=== PATIENT | male | born 1955 | race Caucasian/White ===

== ENCOUNTER 2018-06-26 12:16 | Outpatient (CLI) | payer OTHER, SELFPAY ==
[2018-06-26 14:33] LABS: Anion Gap 13.4 mmol/L (3-11); BUN 26 mg/dL (7-18); CO2 22.6 mmol/L (21.0-32.0); CREATININE 1.33 mg/dL (0.70-1.30); Calcium 9.2 mg/dL (8.5-10.1); Chloride 100 mmol/L (98-107); Estimated GFR 54.85 (mL/min/1.73m2); Glucose 264 mg/dL (70-100); Potassium 4.9 mmol/L (3.5-5.1); Sodium 136 mmol/L (136-145)
[2018-06-26 14:48] LABS: Hemoglobin A1C 8.9 % (4.5-6.2)
== END 2018-06-26 12:36 ==
PROVIDERS: PCP Emergency Medicine; Visit Provider Emergency Medicine
DX: E11.9 Type 2 diabetes mellitus without complications (principal); I10 Essential (primary) hypertension
CPT/HCPCS: 36415; 80048; 83036

== ENCOUNTER 2018-07-08 00:39 | Outpatient (CLI) | payer OTHER, SELFPAY ==
--- NOTE | 2018-07-08 09:13 | DI.CT_ITS ---
SYMPTOM/DIAGNOSIS: RIGHT RENAL CELL CANCER ABDOMINAL AND PELVIC CT: 07/08 CT examination of the abdomen and pelvis was performed with a bolus infusion of 100 cc Omnipaque 350 and ingestion of dilute barium. Images obtained through the lower lung talley are unremarkable. There is marked hepatic steatosis. No focal hepatic or splenic lesion identified. Pancreas is unremarkable in appearance. No biliary dilatation seen. Gallbladder appears to have been surgically removed. Note is made of right nephrectomy. There is also a left hemicolectomy. There is a tiny nonobstructing left renal calculus. Otherwise left kidney appears normal. Left adrenal is unremarkable in appearance. Abdominal aorta is of normal diameter and no major vascular abnormality is seen. Previous ventral hernia repair noted. No significant abdominal or pelvic adenopathy identified. No evidence of bowel obstruction. Small focal area of increased fat radiodensity is seen in the mesentery near the colonic anastomosis and is probably unchanged from previous CT of 10/07/15. No bony lesion identified in the region surveyed. CONCLUSION: No evidence of metastatic disease in a patient who is status post right nephrectomy and left hemicolectomy.
[2018-07-08] MEDS: Breeza Beverage 473 ML BTL PO ×2 (10:01→10:03)
[2018-07-08] MEDS: Omnipaque 350 MG/ML 50 ML BTL PO (10:02)
[2018-07-08 10:04] LABS: CREATININE 1.14 mg/dL (0.70-1.30)
[2018-07-08] MEDS: Omnipaque 350 MG/ML 100 ML BTL IJ (11:16)
== END 2018-07-08 00:59 ==
PROVIDERS: Family Medicine; PCP Emergency Medicine; Visit Provider Emergency Medicine
DX: C64.1 Malignant neoplasm of right kidney, except renal pelvis (principal); K76.0 Fatty (change of) liver, not elsewhere classified; N20.0 Calculus of kidney; Z90.49 Acquired absence of other specified parts of digestive tract; Z90.5 Acquired absence of kidney; E11.9 Type 2 diabetes mellitus without complications
CPT/HCPCS: 36415; 74177; 82565; J3490; Q9967

== ENCOUNTER 2018-09-18 11:26 | Day surgery (SDC) | payer OTHER, SELFPAY ==
[2018-09-18 12:15] VITALS: BP 124/81; PULSE 98; RESP 16; TEMP 36.7; O2SAT 94
[2018-09-18] MEDS: Lactated Ringers 1,000 ML 80 ML IV ×2 (12:30→14:02)
--- NOTE | 2018-09-18 15:23 | BOWEL_PTH ---
PATIENT: Garry Aviles LOC: [facility] U#:[id number] AGE/SX: 63/M ROOM: RE09/18/[address]: Jose Luis Liang DO : 1955 BED: DIS: 09/18/2018 SPEC #: [id number] RECD: 09/18/18 17:50 STATUS: CYNTHIA REQ #: [id number] DANA: 09/18/18 15:[address]: Jose Luis Liang DEPT: Surgical Specimen RECD BY: Maritza Wilson ENTERED: 09/18/18 17:51 SP TYPE: Bowel OTHR DR: Chuck Holt DO Tissues: 1 - BIOPSY BOWEL Procedures: GROSS AND MICRO LEVEL 4 Comments: [id number]
[2018-09-18 16:00] VITALS: BP 112/65; PULSE 80; RESP 17; TEMP 36; O2SAT 100
--- NOTE | 2018-09-18 16:43 | W.COLOREPORT ---
Date of service: 09/18/18 Time of Service: 15:00 Colonoscopy Report Date of procedure: 09/18/18 Pre-op diagnosis general: Colorectal cancer screening Post-op diagnosis procedure note: other (Rectal polyp) Procedure: Colonoscopy to the cecum with biopsy of a hot snare Anesthesia proc note operative: MAC (David Soares CRNA; ASA 3 Mallampati class II) Estimated blood loss (mL): 1 Pathology: other (Rectal polyp) Complications: None Disposition: same day Indications: 63-year-old gentleman presenting for colorectal cancer screening by colonoscopy. He has no family history of colorectal cancer. He does have a history of renal cancer and has had a nephrectomy. He reports that he had a colon resection when he was younger in his 20s for diverticulitis he is unsure how much colon was resected, and I do not have a copy of his operative report. He has been asymptomatic. He denies any abdominal pain, nausea, vomiting, weight loss, hematochezia, and melena. The colonoscopy procedure is been reviewed with him, and the risks of the procedure have been discussed with him. All his questions were answered to his satisfaction. Consent was obtained to proceed with colonoscopy Prep: Miralax/Dulcolax (Prep quality adequate) Findings: In examining the colon from the cecum to the anus, it appears that he has had a left hemicolectomy as it was about 70 cm to the cecum. No abnormalities were noted of the colon, rectum, or anorectal junction. Procedure Description: The patient was seen in the day surgery waiting area. His identification was confirmed, and procedure checked. He was then brought to the procedure room. Monitoring for telemetry, blood pressure, oxygen saturation, and end tidal CO2 monitoring were applied. An appropriate time out was performed to confirm, identification, allergies, medication, procedure, was performed. Sedation was titrated for affect by the PROFESSIONAL BUILDER; Once adequate sedation was achieved, I performed a inspection of the external perineum, and a digitial rectal examination. No significant external abnormalities were noted. On digital rectal examination, there was no blood, no masses, good rectal tone, and a normal prostate. I advanced the colonoscope from the anus to the cecum under direct visualization. The cecum was identified by the ileal-cecal valve, and the appendiceal orifice. The scope was then withdrawn circumferential manner from the cecum to the rectum. In doing so is clearly evidence that the patient has had a left hemicolectomy may be an extended left hemicolectomy has a total length of colon I measured to be about 70 cm. No abnormalities were noted in the colon. The scope was then withdrawn into the rectum. A large pedunculated polyp was identified in the rectum was approximately 1-2 cm in greatest diameter. It was subsequently removed by hot snare biopsy in 2 pieces. These were sent for pathology as one polyp. No other abnormalities are noted of the rectum, and the scope was retroflexed in the rectum with no abnormalities noted at the anorectal junction. The scope was then withdrawn, terminating the procedure. There were no complications during the procedure, and the patient tolerated the procedure well. He was returned to the day surgery recovery area in good condition. Plan: We will await pathology before making further recommendations.
--- NOTE | 2018-09-18 16:54 | W.PM.DSUDISC ---
Discharge Plan Disposition Patient Disposition: HOME Condition: Good Discharge Details Reason For Visit: SCREENING Attending Provider: Jose Luis Liang Primary Care Provider: Chuck Holt Home Meds and New Rx's Prescriptions: Continue lisinopril 20 mg tablet 20 mg PO DAILY RF: 0 aspirin [Aspir-81] 81 MG tablet,delayed release (DR/EC) 81 mg PO DAILY RF: 0 pen needle, diabetic [BD Ultra-Fine Norma Pen Needle] 1 EACH needle 1 ea Miscellaneous DAILY Qty: 100 RF: 4 blood sugar diagnostic [OneTouch Ultra Test] 1 EACH strip 1 ea Miscellaneous BID PRNQty: 100 RF: 6 lancets [OneTouch SureSoft Lancing Dev] 1 EACH misc 1 ea Miscellaneous BID PRNQty: 100 RF: 6 metformin 1,000 mg tablet 1,000 mg PO BID Qty: 180 RF: 3 insulin glargine [Basaglar KwikPen U-100 Insulin] 100 unit/mL (3 mL) insulin pen 75 unit subcut DAILY Qty: 4 RF: 15 pravastatin 40 mg tablet 40 mg PO DAILY Qty: 90 RF: 3 Discontinued bisacodyl [Dulcolax (bisacodyl)] 5 mg tablet,delayed release (DR/EC) 5 mg PO ONCE Qty: 4 RF: 0 polyethylene glycol 3350 17 gram/dose powder 255 g PO ONCE Qty: 255 RF: 0 Discharge Instructions Instructions: Colonoscopy (DC) Stand Alone Forms: Colonoscopy Post Instructions, Tasneem Bro (DSU) Activity:: Activity as Tolerated Diet:: As Tolerated Discharge Orders Discharge Orders: Discharge Order (Routine); Ordered 09/18/18 Ordered By: Jose Luis Liang Discharge Data Discharge Date/Time-TO BE ENTERED AT DEPARTURE: 09/18/18 16:21 DS: Diagnosis Discharge Diagnosis (1) Encounter for screening colonoscopy: Status: Acute Asessment and Plan: Colonoscopy performed: Colonoscopy Report Date of procedure: 09/18/18 Pre-op diagnosis general: Colorectal cancer screening Post-op diagnosis procedure note: other (Rectal polyp) Procedure: Colonoscopy to the cecum with biopsy of a hot snare Anesthesia proc note operative: MAC (David Soares CRNA; ASA 3 Mallampati class II) Estimated blood loss (mL): 1 Pathology: other (Rectal polyp) Complications: None Disposition: same day Indications: 63-year-old gentleman presenting for colorectal cancer screening by colonoscopy. He has no family history of colorectal cancer. He does have a history of renal cancer and has had a nephrectomy. He reports that he had a colon resection when he was younger in his 20s for diverticulitis he is unsure how much colon was resected, and I do not have a copy of his operative report. He has been asymptomatic. He denies any abdominal pain, nausea, vomiting, weight loss, hematochezia, and melena. The colonoscopy procedure is been reviewed with him, and the risks of the procedure have been discussed with him. All his questions were answered to his satisfaction. Consent was obtained to proceed with colonoscopy Prep: Miralax/Dulcolax (Prep quality adequate) Findings: In examining the colon from the cecum to the anus, it appears that he has had a left hemicolectomy as it was about 70 cm to the cecum. No abnormalities were noted of the colon, rectum, or anorectal junction. Procedure Description: The patient was seen in the day surgery waiting area. His identification was confirmed, and procedure checked. He was then brought to the procedure room. Monitoring for telemetry, blood pressure, oxygen saturation, and end tidal CO2 monitoring were applied. An appropriate time out was performed to confirm, identification, allergies, medication, procedure, was performed. Sedation was titrated for affect by the AIRCRAFT PARTS ASSEMBLER; Once adequate sedation was achieved, I performed a inspection of the external perineum, and a digitial rectal examination. No significant external abnormalities were noted. On digital rectal examination, there was no blood, no masses, good rectal tone, and a normal prostate. I advanced the colonoscope from the anus to the cecum under direct visualization. The cecum was identified by the ileal-cecal valve, and the appendiceal orifice. The scope was then withdrawn circumferential manner from the cecum to the rectum. In doing so is clearly evidence that the patient has had a left hemicolectomy may be an extended left hemicolectomy has a total length of colon I measured to be about 70 cm. No abnormalities were noted in the colon. The scope was then withdrawn into the rectum. A large pedunculated polyp was identified in the rectum was approximately 1-2 cm in greatest diameter. It was subsequently removed by hot snare biopsy in 2 pieces. These were sent for pathology as one polyp. No other abnormalities are noted of the rectum, and the scope was retroflexed in the rectum with no abnormalities noted at the anorectal junction. The scope was then withdrawn, terminating the procedure. There were no complications during the procedure, and the patient tolerated the procedure well. He was returned to the day surgery recovery area in good condition. Plan: We will await pathology before making further recommendations.
== END 2018-09-18 16:21 | disposition home or self-care (01) ==
PROVIDERS: PCP Emergency Medicine; Visit Provider Surgery
PROC: 0DJD8ZZ Inspection of Lower Intestinal Tract, Via Natural or Artificial Opening Endoscopic (ICD-10-PCS; CPT 45378; principal; 2018-09-18 11:45)
DX: Z12.11 Encounter for screening for malignant neoplasm of colon (principal); Z90.49 Acquired absence of other specified parts of digestive tract; Z87.19 Personal history of other diseases of the digestive system; Z85.528 Personal history of other malignant neoplasm of kidney; E11.9 Type 2 diabetes mellitus without complications; Z79.4 Long term (current) use of insulin; K21.9 Gastro-esophageal reflux disease without esophagitis; I10 Essential (primary) hypertension; K62.1 Rectal polyp
CPT/HCPCS: 45385; 88305

== ENCOUNTER 2019-01-02 07:00 | Outpatient (CLI) | payer OTHER, SELFPAY ==
--- NOTE | 2019-01-02 15:30 | DI.RAD_ITS ---
SYMPTOMS/DIAGNOSIS: IMPINGEMENT SYNDROME, LEFT SHOULDER, M75.42 LEFT SHOULDER: Five views. No priors. Mild hypertrophic changes are seen at the acromioclavicular joint and the greater tuberosity. Note is made of an os acromiale. There is mild spurring at the inferior aspect of the humeral head. The glenohumeral joint is otherwise unremarkable. There is mild downward sloping of the acromion noted. This may cause narrowing of the acromiohumeral interval. No acute fracture, dislocation, lytic or sclerotic lesion is seen. There is a question of a radiolucent area in the soft tissue deep to the deltoid muscle. This may represent a lipoma. Clinical correlation is recommended. IMPRESSION: Degenerative changes seen about the shoulder as described above. If there is continued concern, an MRI of the shoulder may be considered for further evaluation.
== END 2019-01-02 07:20 ==
PROVIDERS: PCP Emergency Medicine; Visit Provider Family Medicine
DX: M75.42 Impingement syndrome of left shoulder (principal); M19.012 Primary osteoarthritis, left shoulder
CPT/HCPCS: 73030

== ENCOUNTER 2019-08-30 07:30 | Outpatient (CLI) | payer OTHER, SELFPAY ==
[2019-08-30 10:35] LABS: COMMENT (LAB VIEW ONLY) 183.17 mg/dL
[2019-08-30 10:42] LABS: Anion Gap 12.7 mmol/L (3-11); BUN 28 mg/dL (7-18); CO2 22.3 mmol/L (21.0-32.0); CREATININE 1.25 mg/dL (0.70-1.30); Calcium 9.6 mg/dL (8.5-10.1); Calculated LDL 123 mg/dL; Chloride 100 mmol/L (98-107); Cholesterol 206 mg/dL (<200); Estimated GFR 58.72 (mL/min/1.73m2); Glucose 223 mg/dL (74-106); HDL Cholesterol 28 mg/dL (40-60); Potassium 4.9 mmol/L (3.5-5.1); Sodium 135 mmol/L (136-145); Triglyceride 279 mg/dL (<150)
[2019-08-30 10:51] LABS: Microalb ug/mg Crea 94.9 ug/mg Cr
[2019-09-01 04:44] LABS: Hemoglobin A1C 8.3 % (4.5-6.2)
== END 2019-08-30 07:50 ==
PROVIDERS: PCP Emergency Medicine; Visit Provider Emergency Medicine
DX: E11.9 Type 2 diabetes mellitus without complications (principal)
CPT/HCPCS: 36415; 80048; 80061; 82043; 82570; 83036

== ENCOUNTER 2020-02-18 03:36 | Outpatient (CLI) | payer OTHER, SELFPAY ==
[2020-02-18 13:11] LABS: Anion Gap 11.8 mmol/L (3-11); BUN 33 mg/dL (7-18); CO2 22.2 mmol/L (21.0-32.0); CREATININE 1.49 mg/dL (0.70-1.30); Calcium 9.8 mg/dL (8.5-10.1); Chloride 99 mmol/L (98-107); Estimated GFR 47.79 (mL/min/1.73m2); Glucose 174 mg/dL (74-106); Potassium 5.1 mmol/L (3.5-5.1); Sodium 133 mmol/L (136-145)
[2020-02-18 13:14] LABS: COMMENT (LAB VIEW ONLY) 93.84 mg/dL
== END 2020-02-18 03:56 ==
PROVIDERS: PCP Emergency Medicine; Visit Provider Family Medicine
DX: E11.9 Type 2 diabetes mellitus without complications (principal)
CPT/HCPCS: 36415; 80048; 82043; 82570

== ENCOUNTER 2020-03-02 01:49 | Outpatient (CLI) | payer OTHER, SELFPAY ==
[2020-03-02 17:26] LABS: Anion Gap 11.8 mmol/L (3-11); BUN 40 mg/dL (7-18); CO2 21.2 mmol/L (21.0-32.0); CREATININE 1.75 mg/dL (0.70-1.30); Calcium 9.7 mg/dL (8.5-10.1); Chloride 101 mmol/L (98-107); Estimated GFR 39.69 (mL/min/1.73m2); Glucose 120 mg/dL (74-106); Sodium 134 mmol/L (136-145)
== END 2020-03-02 02:09 ==
PROVIDERS: PCP Emergency Medicine; Visit Provider Family Medicine
DX: E11.9 Type 2 diabetes mellitus without complications (principal)
CPT/HCPCS: 36415; 80048

== ENCOUNTER 2020-11-24 02:31 | Outpatient (CLI) | payer OTHER, SELFPAY ==
[2020-11-25 13:06] LABS: COVID-19 RT-PCR UVMMC Result Negative (Negative)
== END 2020-11-24 02:32 | disposition home or self-care (01) ==
LOC: LBO 02:31
PROVIDERS: PCP Emergency Medicine; Visit Provider Emergency Medicine
DX: Z20.822 Contact with and (suspected) exposure to COVID-19 (principal)
CPT/HCPCS: U0003

== ENCOUNTER 2021-01-10 04:33 | Outpatient (CLI) | payer OTHER, SELFPAY ==
[2021-01-10 08:41] LABS: ALT 40 U/L (16-63); AST 22 U/L (15-37); Albumin 4.1 g/dL (3.4-5.0); Alkaline Phosphatase 54 U/L (46-116); Anion Gap 9.4 mmol/L (3-11); BUN 29 mg/dL (7-18); Bilirubin, Total 0.6 mg/dL (0.2-1.0); CO2 24.6 mmol/L (21.0-32.0); CREATININE 1.3 mg/dL (0.70-1.30); Calcium 9.7 mg/dL (8.5-10.1); Chloride 102 mmol/L (98-107); Estimated GFR 55.75 (mL/min/1.73m2); Glucose 165 mg/dL (74-106); Potassium 5.3 mmol/L (3.5-5.1); Sodium 136 mmol/L (136-145)
[2021-01-10 08:52] LABS: Bilirubin Negative (Negative); Blood Negative (Negative); Clarity Clear (Clear); Glucose Negative (Negative); Ketones Negative (Negative); Leukocyte Esterase Negative (Negative); Nitrite Negative (Negative); Specific Gravity >= 1.030 (1.005-1.025); Urobilinogen 0.2 EU/dL (Up TO 0.2); pH 5.5 (5-8)
[2021-01-10 10:03] LABS: Bacteria Few HPF (Negative); C & S Indicated? Yes; Casts 10-20 Hyaline LPF (Negative); Crystals Few Amorphous HPF (Negative); Epithelial Cells Rare HPF (Negative); Mucus Trace (Negative); RBC 0-2 HPF (0-2)
[2021-01-10 17:40] LABS: PSA, Screening 0.9 ng/mL (0.0-4.5)
== END 2021-01-10 04:34 | disposition home or self-care (01) ==
LOC: LBO 04:33
PROVIDERS: PCP Emergency Medicine; Visit Provider Family Medicine
DX: R39.11 Hesitancy of micturition (principal); R79.89 Other specified abnormal findings of blood chemistry; Z12.5 Encounter for screening for malignant neoplasm of prostate; R39.89 Other symptoms and signs involving the genitourinary system
CPT/HCPCS: 36415; 80053; 84153; 81003; 81015; 87086

== ENCOUNTER 2021-02-09 20:49 | Outpatient (REF) | payer OTHER, SELFPAY ==
[2021-02-09 21:23] LABS: Anion Gap 11.8 mmol/L (3-11); BUN 24 mg/dL (7-18); CO2 24.2 mmol/L (21.0-32.0); CREATININE 1.3 mg/dL (0.70-1.30); Calcium 9.9 mg/dL (8.5-10.1); Chloride 102 mmol/L (98-107); Cholesterol 176 mg/dL (<200); Estimated GFR 55.75 (mL/min/1.73m2); Glucose 188 mg/dL (74-106); HDL Cholesterol 30 mg/dL (40-60); Potassium 5.2 mmol/L (3.5-5.1); Sodium 138 mmol/L (136-145); Triglyceride 402 mg/dL (<150)
[2021-02-09 21:23] LABS: COMMENT (LAB VIEW ONLY) 106.48 mg/dL; Microalb ug/mg Crea 55.6 ug/mg Cr
[2021-02-09 21:26] LABS: Hemoglobin A1C 7.1 % (<5.7)
[2021-02-09 21:35] LABS: LDL CHOLESTEROL 100 mg/dL (<100)
== END 2021-02-09 20:50 | disposition home or self-care (01) ==
LOC: NCHCN 20:49
PROVIDERS: PCP Emergency Medicine; Visit Provider Emergency Medicine
DX: I10 Essential (primary) hypertension (principal); E11.65 Type 2 diabetes mellitus with hyperglycemia
CPT/HCPCS: 80048; 80061; 83721; 82043; 82570; 83036

== ENCOUNTER 2021-04-30 11:20 | Outpatient (CLI) | payer OTHER, SELFPAY ==
--- NOTE | 2021-04-30 11:15 | DI.RAD_ITS ---
Exam(s) XR LUMBAR SPINE COMPLETE EXAM: XR LUMBAR SPINE COMPLETE CLINICAL HISTORY: pain. TECHNIQUE: 2D digital imaging was performed. COMPARISON: No exams were available for comparison FINDINGS: BONES: No fracture or destructive lesion. Vertebral bodies are unremarkable. Mild facet arthropathy i s seen at L4-5 and L5-S1. DISKS: Intervertebral disc spaces are maintained. ALIGNMENT: Lumbar spinal alignment is within normal limits. There is mild stranding of the normal lum bar lordosis. SOFT TISSUE: Normal. Surgical clips are seen overlying the abdomen. Atherosclerosis. IMPRESSION: No acute abnormality. DATA REPOSITORY: RADIATION DOSE DELIVERED:
--- NOTE | 2021-04-30 11:15 | DI.RAD_ITS ---
Exam(s) XR SACRUM EXAM: XR SACRUM CLINICAL HISTORY: pain. TECHNIQUE: 2D digital imaging was performed. COMPARISON: No exams were available for comparison FINDINGS: BONES: No acute fracture is present. No bony destructive lesion is seen. There is enthesopathic the a t the right greater trochanter. JOINTS: No dislocation present. The sacroiliac joints are well maintained. SOFT TISSUE: Normal. IMPRESSION: No acute abnormality. DATA REPOSITORY: RADIATION DOSE DELIVERED:
--- NOTE | 2021-04-30 12:26 | DI.VRAD_ITS ---
PROCEDURE INFORMATION: Exam: XR Sacrum and Coccyx, 2 or More Views Exam date and time: 04/30/2021 11:41 AM Age: 65 years old Clinical indication: Pain; Other: Lbp TECHNIQUE: Imaging protocol: XR of the sacrum and coccyx, 2 or more views. COMPARISON: CT Abdomen^ROUTINE ABDOMEN PELVIS WITH CONTRAST (Adult) 07/08/2018 10:54 AM FINDINGS: Bones/joints: Normal. No acute fracture. Soft tissues: Normal. Other findings: There are enthesopathic changes adjacent to right greater trochanter. IMPRESSION: No acute abnormality. Dictated and Authenticated by: Jason Bob MD. Ordering:MERY Cohn MD
--- NOTE | 2021-04-30 12:29 | DI.VRAD_ITS ---
PROCEDURE INFORMATION: Exam: XR Lumbosacral Spine Exam date and time: 04/30/2021 11:42 AM Age: 65 years old Clinical indication: Low back pain TECHNIQUE: Imaging protocol: XR of the lumbosacral spine. Views: 4 or 5 views. COMPARISON: CT Abdomen^ROUTINE ABDOMEN PELVIS WITH CONTRAST (Adult) 07/08/2018 10:54 AM FINDINGS: Bones/joints: There is straightening of lumbar lordosis. There is mild facet osteoarthropathy at right L4-L5 and bilateral L5-S1. Soft tissues: There is mesh plasty in the anterior abdominal wall. There are surgical clips projecting over right hemiabdomen. IMPRESSION: No acute finding. Dictated and Authenticated by: Jason Bob MD. Ordering:MERY Cohn MD
== END 2021-04-30 11:40 ==
LOC: LBN 11:22 → DI 11:24
PROVIDERS: PCP Emergency Medicine; Visit Provider Nurse Practitioner Family
DX: M53.3 Sacrococcygeal disorders, not elsewhere classified (principal); M54.5 Low back pain
CPT/HCPCS: 72110; 72220

== ENCOUNTER 2021-06-07 16:24 | Outpatient (REF) | payer OTHER, SELFPAY ==
[2021-06-07 18:02] LABS: Anion Gap 6.5 mmol/L (3-11); BUN 36 mg/dL (7-18); CO2 28.5 mmol/L (21.0-32.0); CREATININE 1.7 mg/dL (0.70-1.30); Calcium 10.7 mg/dL (8.5-10.1); Chloride 102 mmol/L (98-107); Estimated GFR 40.91 (mL/min/1.73m2); Glucose 190 mg/dL (74-106); Potassium 5.3 mmol/L (3.5-5.1); Sodium 137 mmol/L (136-145)
[2021-06-07 18:10] LABS: Hemoglobin A1C 7.3 % (<5.7)
== END 2021-06-07 16:25 | disposition home or self-care (01) ==
LOC: LBN 16:24
PROVIDERS: PCP Emergency Medicine; Visit Provider Emergency Medicine
DX: I10 Essential (primary) hypertension (principal); E11.9 Type 2 diabetes mellitus without complications
CPT/HCPCS: 80048; 83036

== ENCOUNTER 2021-12-23 01:36 | Outpatient (CLI) | payer OTHER, SELFPAY ==
[2021-12-23 16:12] LABS: Hemoglobin A1C 8.3 % (<5.7)
[2021-12-23 16:50] LABS: COMMENT (LAB VIEW ONLY) 91.15 mg/dL
[2021-12-23 16:51] LABS: Anion Gap 10.6 mmol/L (3-11); BUN 26 mg/dL (7-18); CO2 24.4 mmol/L (21.0-32.0); CREATININE 1.3 mg/dL (0.70-1.30); Chloride 104 mmol/L (98-107); Estimated GFR 55.58 (mL/min/1.73m2); Glucose 216 mg/dL (74-106); Microalb ug/mg Crea 147.1 ug/mg Cr; Potassium 4.9 mmol/L (3.5-5.1); Sodium 139 mmol/L (136-145)
== END 2021-12-23 01:37 | disposition home or self-care (01) ==
LOC: LBO 01:36
PROVIDERS: PCP Family Medicine; Visit Provider Emergency Medicine
DX: E11.9 Type 2 diabetes mellitus without complications (principal); I10 Essential (primary) hypertension
CPT/HCPCS: 36415; 80048; 82043; 82570; 83036

== ENCOUNTER 2022-01-19 16:01 | Outpatient (REF) | payer OTHER, SELFPAY ==
[2022-01-21 10:52] LABS: COVID-19 RT-PCR UVMMC Result Negative (Negative)
== END 2022-01-19 16:02 | disposition home or self-care (01) ==
LOC: LBN 16:01
PROVIDERS: PCP Family Medicine; Visit Provider Emergency Medicine
DX: Z20.822 Contact with and (suspected) exposure to COVID-19 (principal); R05.8 Other specified cough; R09.89 Other specified symptoms and signs involving the circulatory and respiratory systems
CPT/HCPCS: U0003

== ENCOUNTER 2022-04-05 02:01 | Outpatient (CLI) | payer OTHER, SELFPAY | END 2022-04-05 02:02 | disposition home or self-care (01) | LOC: LBO 02:01 | PROVIDERS: PCP Nurse Practitioner Family; Visit Provider Nurse Practitioner Family ==

== ENCOUNTER 2022-04-13 04:14 | Outpatient (CLI) | payer OTHER, SELFPAY ==
[2022-04-13 17:59] LABS: TSH 3.35 uIU/mL (0.36-3.74)
== END 2022-04-13 04:15 | disposition home or self-care (01) ==
LOC: LBO 04:14
PROVIDERS: PCP Nurse Practitioner Family; Visit Provider Nurse Practitioner Family
DX: G25.0 Essential tremor (principal)
CPT/HCPCS: 36415; 84443

== ENCOUNTER → 2022-04-26 00:50 | Outpatient (CLI) | payer OTHER, SELFPAY ==
--- NOTE | 2022-04-26 08:30 | DI.RAD_ITS ---
Exam(s) XR KNEE RT 3V AP,LAT,TAYLOR EXAM: XR KNEE RT 3V AP,LAT,TAYLOR CLINICAL HISTORY: right knee pain,m25.561. TECHNIQUE: 2D digital imaging was performed. Three views. COMPARISON: No exams were available for comparison FINDINGS: BONES: No acute fracture is present. No bony destructive lesion is seen. JOINTS: The joint spaces are well maintained. There is is mild periarticular spurring. The knee is normally aligned. No joint effusion is seen. SOFT TISSUE: Anterior swelling. Mild vascular calcifications. IMPRESSION: Mild degenerative changes. Anterior soft tissue swelling. DATA REPOSITORY: RADIATION DOSE DELIVERED:
== END ==
PROVIDERS: PCP Nurse Practitioner Family; Visit Provider Physician Assistant
DX: M17.11 Unilateral primary osteoarthritis, right knee (principal); M79.89 Other specified soft tissue disorders
CPT/HCPCS: 73562

== ENCOUNTER 2022-08-25 01:33 | Outpatient (CLI) | payer OTHER, SELFPAY ==
[2022-08-25 13:01] LABS: CREATININE 1.4 mg/dL (0.70-1.30); Estimated GFR 56.13 (mL/min/1.73m2); Potassium 5.1 mmol/L (3.5-5.1)
[2022-08-25 13:24] LABS: Vitamin B12 740 pg/mL (193-986)
[2022-08-28 14:51] LABS: Albumin g/dL 4.3 g/dL (3.6-5.2); Comment (See Note); Total Protein 7.3 g/dL (6.3-8.2)
[2022-08-28 15:39] LABS: Immunotyping, Serum (See Note)
== END 2022-08-25 01:34 | disposition home or self-care (01) ==
LOC: LOS 01:34
PROVIDERS: Psychiatry & Neurology Neurology; PCP Nurse Practitioner Family; Visit Provider Nurse Practitioner Family
DX: I10 Essential (primary) hypertension (principal); G62.9 Polyneuropathy, unspecified
CPT/HCPCS: 36415; 82565; 82607; 84132; 84165; 86320

== ENCOUNTER 2023-08-28 03:13 | Outpatient (CLI) | payer MEDICARE, SELFPAY ==
[2023-08-28 12:41] LABS: Anion Gap 10.5 mmol/L (3-11); BUN 25 mg/dL (7-18); CO2 21.5 mmol/L (21.0-32.0); CREATININE 1.3 mg/dL (0.70-1.30); Calcium 9.5 mg/dL (8.5-10.1); Chloride 102 mmol/L (98-107); Estimated GFR 60.96 (mL/min/1.73m2); Glucose 120 mg/dL (74-106); Potassium 4.6 mmol/L (3.5-5.1); Sodium 134 mmol/L (136-145); Uric Acid 7.4 mg/dL (3.5-7.2)
[2023-09-03 17:06] LABS: Apolipoprotein B, Serum 111 mg/dL; Beta VLDL Cholesterol Not Detected mg/dL (<15); Beta VLDL Triglycerides Not Detected mg/dL (<15); Cholesterol, Total, CDC 187 mg/dL; Chylomicron Cholesterol Not Detected; Chylomicron Triglycerides Not Detected; HDL Cholesterol, CDC 41 mg/dL (>=40); LDL Cholesterol 114 mg/dL; LDL Triglycerides 50 mg/dL (<=50); Lp(a) Cholesterol 5 mg/dL (<5); LpX Not detected; Triglycerides, CDC 187 mg/dL; VLDL Cholesterol 27 mg/dL (<30); VLDL Triglycerides 118 mg/dL (<120)
== END 2023-08-28 03:14 | disposition home or self-care (01) ==
LOC: LBO 03:13
PROVIDERS: PCP Nurse Practitioner Family; Visit Provider Nurse Practitioner Family
DX: C64.9 Malignant neoplasm of unspecified kidney, except renal pelvis (principal); E78.2 Mixed hyperlipidemia; M10.9 Gout, unspecified
CPT/HCPCS: 36415; 80048; 80061; 82172; 82664; 84550

== ENCOUNTER 2023-12-03 05:09 | Outpatient (CLI) | payer MEDICARE, SELFPAY ==
[2023-12-03 12:17] LABS: Abs Immature Grans 0.02 10^3/uL (0.0-0.06); Absolute Basophil Count 0.07 10^3/uL (0.0-0.2); Absolute Eosinophil Count 0.23 10^3/uL (0.0-0.7); Absolute Lymphocyte Count 1.97 10^3/uL (1.2-3.4); Absolute Neutrophil Count 5.42 10^3/uL (1.2-6.7); Basophils % 0.9; Eosinophils % 2.8; HGB 14.4 g/dL (13.5-17.5); Immature Grans % 0.2; MCH 30.6 pg (27.0-33.0); MCHC 34.3 % (32.0-36.0); MCV 89 fL (80-95); MPV 11.1 fL (8.0-11.0); Monocytes % 6.1; Platelet Count 227 10^3/uL (130-400); RBC 4.71 10^6/uL (4.36-5.78); RDW 13.2 % (11.8-14.1); WBC 8.21 10^3/uL (4.4-10.8)
[2023-12-03 12:30] LABS: CREATININE 1.3 mg/dL (0.70-1.30); Calculated LDL 109 mg/dL (<100); Cholesterol 189 mg/dL (<200); Estimated GFR 60.59 (mL/min/1.73m2); HDL Cholesterol 38 mg/dL (40-60); Potassium 4.6 mmol/L (3.5-5.1); Triglyceride 211 mg/dL (<150)
[2023-12-03 12:40] LABS: Hemoglobin A1C 6.1 % (<5.7)
== END 2023-12-03 05:10 | disposition home or self-care (01) ==
LOC: LOS 05:10
PROVIDERS: PCP Nurse Practitioner Family; Visit Provider Family Medicine
DX: D64.9 Anemia, unspecified (principal); E11.65 Type 2 diabetes mellitus with hyperglycemia; I10 Essential (primary) hypertension; E78.5 Hyperlipidemia, unspecified
CPT/HCPCS: 36415; 80061; 82565; 83036; 84132; 85025

== ENCOUNTER 2024-01-10 04:59 | Outpatient (CLI) | payer MEDICARE, SELFPAY ==
[2024-01-14 16:08] LABS: Apolipoprotein B, Serum 121 mg/dL; Beta VLDL Cholesterol Not Detected mg/dL (<15); Beta VLDL Triglycerides Not Detected mg/dL (<15); Cholesterol, Total, CDC 206 mg/dL; Chylomicron Cholesterol Not Detected; Chylomicron Triglycerides Not Detected; HDL Cholesterol, CDC 33 mg/dL (>=40); LDL Cholesterol 132 mg/dL; LDL Triglycerides 53 mg/dL (<=50); Lp(a) Cholesterol <5 mg/dL (<5); LpX Not detected; Triglycerides, CDC 227 mg/dL; VLDL Cholesterol 41 mg/dL (<30); VLDL Triglycerides 153 mg/dL (<120)
== END 2024-01-10 05:00 | disposition home or self-care (01) ==
LOC: LOS 04:59
PROVIDERS: PCP Nurse Practitioner Family; Visit Provider Nurse Practitioner Family
DX: E78.2 Mixed hyperlipidemia (principal)
CPT/HCPCS: 36415; 80061; 82172; 82664

== ENCOUNTER → 2024-01-14 02:58 | Outpatient (CLI) | payer MEDICARE, SELFPAY ==
--- NOTE | 2024-01-14 08:30 | DI.US_ITS ---
Exam(s) US BREAST LT COMPLETE MG MAMMO DIAGNOSTIC BI EXAM: MG MAMMO DIAGNOSTIC BI AND COMPLETE LEFT BREAST ULTRASOUND CLINICAL HISTORY: Mass/lump above left nipple/painful,N63.21. TECHNIQUE: BILATERAL CC AND MLO mammographic images were obtained with 3D tomosynthesis technique [address] utilizing computer aided detection (CAD). COMPLETE LEFT BREAST ULTRASOUND was performed including all 4 quadrants as well as the axillary regio n. COMPARISON: None. This 68-year-old male patient feels a possible lump at approximately the 11 o'carolynn ck position of the left breast 8 cm above the nipple. FINDINGS: BILATERAL DIAGNOSTIC MAMMOGRAM: There is no evidence of gynecomastia. Small benign-appearing lymph node noted laterally in the right breast. No spiculated masses nor malignant-appearing microcalcification groups in either breast. N o significant architectural distortion or skin thickening-retraction. COMPLETE LEFT BREAST ULTRASOUND: No ultrasound evidence of gynecomastia. No solid or significant cystic lesions identified. At the 1 1 o'clock position there is a very subtle finding in the region of clinical concern which measures ap proximately 3 x 3 mm size and but is only seen in the anterior radial plane and does not hold up in t he radial plane. There is no increase nor decreased through transmission at this location. No other ultrasound findings in all 4 quadrants. No adenopathy in the left axilla. IMPRESSION: 1. No mammographic evidence of malignancy. 2. Subtle probable benign left breast ultrasound finding at 11 o'clock position. Appropriate follow-up is repeat ultrasound in a few months time if he feels that this finding has not disappeared. The patient was informed of the findings and follow-up recommendations by myself prior to leaving the department today. BI-RADS Category 3 - 3 month - Probably Benign Finding: Recommend follow-up mammography in 3 months Breast Density - Category B - Scattered areas of fibroglandular density Breast density Category C or D implies that the patient has dense breast tissue. Dense breast tissue can make it harder to find cancer on a mammogram. Dense breast tissue is also associated with an incr eased risk of breast cancer. This information about the result of the mammogram report was provided to the patient to raise their awareness. Use this report when you speak with the patient about their risks for breast cancer, which includes their family history. At that time, you may recommend additional screening tests (Ultrasoun d or MRI) as these tests may add significant information. A negative radiographic report should not delay biopsy if a dominant or clinically suspicious mass is present. Up to ten percent of cancers are not identified on mammography. A negative report may reinforce clinical impression. Adenosis and dense breasts may obscure an underlying neoplasm. False positive reports average 6 to 10%. Patient will receive a letter notifying them of these results.
== END ==
PROVIDERS: PCP Nurse Practitioner Family; Visit Provider Nurse Practitioner Family
DX: N63.22 Unspecified lump in the left breast, upper inner quadrant (principal); N60.82 Other benign mammary dysplasias of left breast
CPT/HCPCS: 76642; 77062; 77066; G0279

== ENCOUNTER → 2024-02-13 02:58 | Outpatient (CLI) | payer MEDICARE, SELFPAY ==
--- NOTE | 2024-02-13 07:30 | DI.CT_ITS ---
Exam(s) CT ABDOMEN PELVIS W EXAM: CT ABDOMEN PELVIS W CLINICAL HISTORY: lt upper abd mass,r19.00. TECHNIQUE: Imaging Protocol: Axial computed tomography images with coronal and sagittal reformatted images were created and reviewed CONTRAST MATERIAL: Intravenous: Omnipaque 350 Contrast volume:100 ml Oral: yes / FINDINGS: ABDOMEN and PELVIS: Lung Bases: No acute findings. Liver: Attic steatosis with some improvement from prior. No suspicious mass. Gallbladder and biliary tract: Status post cholecystectomy. No radiodense calculus. No biliary dilat ion. Pancreas: Normal density. No abnormal calcifications or inflammatory process. No evidence of mass. Spleen: Normal. Kidneys: Status post right nephrectomy. Left kidney appears normal. No radiodense stones. No obstruct zuly uropathy. No suspicious masses seen. Adrenal glands: Status post right adrenalectomy. No masses seen. Vasculature: Abdominal aorta non-dilated. Ctfa-dt-fyjkrwmh atherosclerotic changes. Soft tissues: Midline anterior abdominal wall hernia repair. Intact. No new hernias. Bladder: No gross wall thickening. No calculi.No focal mass. Bowel: Status post partial colectomy. No obstruction. No bowel wall thickening. Appendix normal. Peritoneal cavity: No ascites. No focal collection. No mesenteric inflammatory response. Bones: Unremarkable for age. Reproductive organs: Unremarkable. Lymph nodes: No pathologically enlarged lymph nodes. IMPRESSION:: No acute abnormality in the abdomen or pelvis. RADIATION DOSE DELIVERED: 1,044.01mGy.cm Total DLP DATA REPOSITORY: All CT scans at this facility are submitted to the National Radiology Data Registry (NRDR) Dose Index Registry (DIR) with the [employer] (A[employer]). RADIATION OPTIMIZATION: All CT scans at this facility use at least one of these dose optimization te chniques: automated exposure control; mA and/or kV adjustment per patient size (includes targeted exa ms where dose is matched to clinical indication); or iterative reconstruction.
[2024-02-13] MEDS: Barium Sulfate 2% W/V-Creamy Vanilla Smoothie 450 ML BTL PO (09:05)
[2024-02-13] MEDS: Barium Sulfate 2% W/V-Berry Smoothie 450 ML BTL PO (09:06)
[2024-02-13 09:37] LABS: CREATININE 1.3 mg/dL (0.70-1.30); Estimated GFR 60.59 (mL/min/1.73m2)
[2024-02-13] MEDS: Normal Saline - Diluent 50 ML VIAL IJ (11:39)
[2024-02-13] MEDS: Omnipaque 350 MG/ML 100 ML BTL IJ (11:40)
[2024-02-13] MEDS: Normal Saline Flush 10 ML SYR IVP (11:42)
== END ==
PROVIDERS: PCP Nurse Practitioner Family; Visit Provider Nurse Practitioner Family
DX: R19.01 Right upper quadrant abdominal swelling, mass and lump (principal)
CPT/HCPCS: 74177; 82565; J3490

== ENCOUNTER 2024-03-21 02:03 | Outpatient (CLI) | payer MEDICARE, SELFPAY ==
[2024-03-26 15:57] LABS: Apolipoprotein B, Serum 61 mg/dL; Beta VLDL Cholesterol Not Detected mg/dL (<15); Beta VLDL Triglycerides Not Detected mg/dL (<15); Cholesterol, Total, CDC 104 mg/dL; Chylomicron Cholesterol Not Detected; Chylomicron Triglycerides Not Detected; HDL Cholesterol, CDC 31 mg/dL (>=40); LDL Cholesterol 59 mg/dL; LDL Triglycerides 35 mg/dL (<=50); Lp(a) Cholesterol <5 mg/dL (<5); LpX Not detected; Triglycerides, CDC 113 mg/dL; VLDL Cholesterol 14 mg/dL (<30); VLDL Triglycerides 59 mg/dL (<120)
== END 2024-03-21 02:04 | disposition home or self-care (01) ==
LOC: LOS 02:08
PROVIDERS: PCP Nurse Practitioner Family; Visit Provider Nurse Practitioner Family
DX: E78.2 Mixed hyperlipidemia (principal)
CPT/HCPCS: 36415; 80061; 82172; 82664

== ENCOUNTER 2024-07-02 15:53 | Outpatient (REF) | payer MEDICARE, SELFPAY ==
[2024-07-02 15:06] LABS: COMMENT (LAB VIEW ONLY) 97.95 mg/dL; Microalb ug/mg Crea 51.7 ug/mg Cr
== END 2024-07-02 15:54 | disposition home or self-care (01) ==
LOC: LBN 15:53
PROVIDERS: PCP Nurse Practitioner Family; Visit Provider Nurse Practitioner Family
DX: E11.9 Type 2 diabetes mellitus without complications (principal); Z12.5 Encounter for screening for malignant neoplasm of prostate; Z79.4 Long term (current) use of insulin; R35.1 Nocturia
CPT/HCPCS: 82043; 82570

== ENCOUNTER 2024-07-04 02:25 | Outpatient (CLI) | payer MEDICARE, SELFPAY ==
[2024-07-04 23:02] LABS: PSA, Screening 0.9 ng/mL (<=4.5)
== END 2024-07-04 02:26 | disposition home or self-care (01) ==
LOC: LBO 02:25
PROVIDERS: PCP Nurse Practitioner Family; Visit Provider Nurse Practitioner Family
DX: Z12.5 Encounter for screening for malignant neoplasm of prostate (principal); E11.9 Type 2 diabetes mellitus without complications; Z79.4 Long term (current) use of insulin; R35.1 Nocturia
CPT/HCPCS: 36415; 84153

== ENCOUNTER 2024-12-08 17:33 | Outpatient (CLI) | payer MEDICARE, SELFPAY ==
--- NOTE | 2024-12-08 12:30 | DI.CT_ITS ---
Exam(s) CT HEAD WO EXAM: CT HEAD WO CLINICAL HISTORY: S09.90XA, H53.9; Head injury, visual changes, evaluate pathology. TECHNIQUE: Imaging Protocol: Axial computed tomography images with coronal and sagittal reformatted images were created and reviewed COMPARISON: No exams were available for comparison FINDINGS: There are no skull fractures. There is no fluid in the visualized paranasal sinuses. There is no evidence of intracranial hemorrhage, mass effect, or shift of midline structures. There are no extra-axial fluid collections. The ventricles are not enlarged or shifted and there is no blo od within the ventricular system nor within the basal cisterns. There is mild hypodensity both external capsules may indicate small nonhemorrhagic lacunar infarcts o f indeterminate age. IMPRESSION: No evidence of skull fracture nor intracranial hemorrhage, given the trauma history. Subtle hypodensity noted both external capsules which may be related to ischemic small-vessel white m atter disease, age indeterminate. Clinically indicated follow-up MRI can be performed RADIATION DOSE DELIVERED: 831.75mGy.cm Total DLP DATA REPOSITORY: All CT scans at this facility are submitted to the National Radiology Data Registry (NRDR) Dose Index Registry (DIR) with the [employer] (ACR). RADIATION OPTIMIZATION: All CT scans at this facility use at least one of these dose optimization te chniques: automated exposure control; mA and/or kV adjustment per patient size (includes targeted exa ms where dose is matched to clinical indication); or iterative reconstruction.
== END 2024-12-08 17:53 ==
LOC: DI 17:34
PROVIDERS: PCP Nurse Practitioner Family; Visit Provider Nurse Practitioner Family
DX: S09.90XA Unspecified injury of head, initial encounter (principal); H53.9 Unspecified visual disturbance; X58.XXXA Exposure to other specified factors, initial encounter
CPT/HCPCS: 70450

== ENCOUNTER 2024-12-26 11:08 | Outpatient (CLI) | payer MEDICARE, SELFPAY ==
[2024-12-26 10:47] LABS: Hemoglobin A1C 6.5 % (<5.7)
[2024-12-26 11:02] LABS: Anion Gap 10.7 mmol/L (3-11); BUN 23 mg/dL (7-18); CO2 22.3 mmol/L (21.0-32.0); CREATININE 1.4 mg/dL (0.70-1.30); Calcium 9.3 mg/dL (8.5-10.1); Calculated LDL 74 mg/dL (<100); Chloride 104 mmol/L (98-107); Cholesterol 159 mg/dL (<200); Estimated GFR 55.09 (mL/min/1.73m2); Glucose 243 mg/dL (74-106); HDL Cholesterol 38 mg/dL (>or=40); Potassium 4.9 mmol/L (3.5-5.1); Sodium 137 mmol/L (136-145); Triglyceride 235 mg/dL (<150)
== END 2024-12-26 11:09 | disposition home or self-care (01) ==
LOC: LBO 11:08
PROVIDERS: PCP Nurse Practitioner Family; Visit Provider Nurse Practitioner Family
DX: E78.2 Mixed hyperlipidemia (principal); Z13.220 Encounter for screening for lipoid disorders; I10 Essential (primary) hypertension; Z13.1 Encounter for screening for diabetes mellitus; E11.9 Type 2 diabetes mellitus without complications; Z79.4 Long term (current) use of insulin
CPT/HCPCS: 36415; 80048; 80061; 83036

== ENCOUNTER 2025-05-11 01:18 | Outpatient (CLI) | payer MEDICARE, SELFPAY ==
--- NOTE | 2025-05-11 09:16 | DI.RAD_ITS ---
Exam(s) XR CERVICAL SPINE COMP 4-5V EXAM: XR CERVICAL SPINE COMP 4-5V CLINICAL HISTORY: Worsening neck pain,m54.2. TECHNIQUE: 2D digital imaging was performed. Five images were obtained. AP, odontoid, lateral and bilateral oblique images were obtained. COMPARISON: No exams were available for comparison FINDINGS: The odontoid is intact. The lateral masses are well aligned. There is mild reversal of the normal cervical lordosis centered at C3. There is disc space narrowing at C3-C4, C5-C6 and C6-C7. There are endplate osteophytes at multiple levels of the cervical spine particularly at C5-C6 and C6-C7. No acute fracture or subluxation is present. There is narrowing of the neural foramen on the right at C3-C4-C5-C6 and C6-C7. The cervical thoracic junction is well maintained. The prevertebral soft tissues are unremarkable. Lung apices are clear. IMPRESSION: Moderate cervical spondylosis resulting in right-sided neural foraminal narrowing as described above. DATA REPOSITORY: RADIATION DOSE DELIVERED:
== END 2025-05-11 01:38 ==
LOC: DI 01:18
PROVIDERS: PCP Nurse Practitioner Family; Visit Provider Nurse Practitioner Family
DX: M47.812 Spondylosis without myelopathy or radiculopathy, cervical region (principal)
CPT/HCPCS: 72050